=== PATIENT | male | born 1950 | race Caucasian/White ===

== ENCOUNTER 2023-07-08 18:33 | Emergency (ER) | payer OTHER, MEDICARE ==
[2023-07-08] MEDS ORDERED: Lidocaine 1% w/Epinephrine 1:200K 30 ML VIAL ONE (19:01)
== END 2023-07-08 19:46 | disposition home or self-care (01) ==
LOC: CSHERS 18:33
DX: S81.812A Laceration without foreign body, left lower leg, initial encounter (principal); W54.0XXA Bitten by dog, initial encounter
CPT/HCPCS: 12001